=== PATIENT | female | born 1935 | race Asian ===

== ENCOUNTER → 2019-10-07 | Outpatient (CLI) | payer MEDICARE, BC ==
--- NOTE | 2019-10-07 10:55 | RAD ---
EXAM: Dual energy x-ray absorptiometry (DEXA). HISTORY: Postmenopausal female presents for osteoporosis screening. COMPARISON: 07/09/2007. TECHNIQUE: Dual energy x-ray absorptiometry of the lumbar spine and right hip was performed. Calculation of bone mineral density based on standard deviations above or below the expected young adult normal value (T-score) was completed. FINDINGS: The average bone mineral density in the 1st through 4th lumbar vertebrae is 1.391 g/cmxcm, corresponding with a T-score of 2.2. There has been a 23.0 percent increase in density of the lumbar spine compared to the prior study. The average total bone mineral density in the right hip is 0.918 g/cmxcm, corresponding with a T-score of -0.3. There has been a 3.9 percent increase in density of the right hip compared to the prior study. The bone mineral density localized to the right femoral neck corresponds with a T-score of -1.1. IMPRESSION: 1. Osteopenia measured at the right femoral neck. 2. Normal bone density measured for the total right hip and for the lumbar spine. Note: Definitions established by the [employer]: 1. Normal: T-score is -1.0 or above. 2. Osteopenia: T-score is between -1.0 and -2.5 . 3. Osteoporosis: T-score is -2.5 or below. Electronically signed by: Fara Rico MD (10/07/2019 10:52 AM) [id number]
== END | disposition home or self-care (01) ==
LOC: DXRAD 10:20
PROVIDERS: ATTEND Nurse Practitioner Adult Health
DX: M85.88 Other specified disorders of bone density and structure, other site (principal); M81.8 Other osteoporosis without current pathological fracture
CPT/HCPCS: 77080